=== PATIENT | male | born 1945 | race African-American/Black ===

== ENCOUNTER 2019-04-06 15:39 | Emergency (ER) | payer OTHER ==
[~2019-04-06] VITALS: Ht 182.9 cm; Wt 85.0 kg
[2019-04-06] MEDS ORDERED: ACETAMINOPHEN 325MG TABLET PO ONE (17:15)
[2019-04-06] MEDS ORDERED: ONDANSETRON HCL 4MG/2ML INJ IV ONE (17:15)
[2019-04-06] MEDS ORDERED: MORPHINE SULFATE 4 MG/ML CPJ (NOT FOR IM USE) IV ONE (17:15)
[2019-04-06] MEDS ORDERED: DEXAMETHASONE 10 MG/ML VIAL IV ONE (17:15)
[2019-04-06 19:21] VITALS: BP 130/83
== END 2019-04-06 22:52 | disposition short-term general hospital (02) ==
LOC: ER 15:39
DX: M54.5 Low back pain (principal); G89.29 Other chronic pain; M54.32 Sciatica, left side; M54.31 Sciatica, right side; R26.89 Other abnormalities of gait and mobility; M19.90 Unspecified osteoarthritis, unspecified site; E11.9 Type 2 diabetes mellitus without complications; Z91.81 History of falling
CPT/HCPCS: 96374; 96375; 99285; J1100; J2270; J2405

== ENCOUNTER 2021-05-21 17:57 | Inpatient (IN) | payer MEDICARE, OTHER ==
[~2021-05-21] VITALS: Ht 182.9 cm; Wt 77.6 kg
[2021-05-21 19:37] LABS: BASOPHILS % 0.1 % (0.0-2.0); CHLORIDE 88 mEq/L (98-107); EOSINOPHILS % 0.4 % (0.0-5.0); HEMATOCRIT. 36.1 % (42.0-52.0); HEMOGLOBIN. 11.7 g/dL (14.0-18.0); LYMPHOCYTES % 10.3 % (20.0-50.0); MEAN CORPUSCULAR HEMOGLOBIN 27.8 pg (28.0-32.0); MEAN CORPUSCULAR VOLUME 85.9 fL (80.0-94.0); MEAN PLATELET VOLUME 9.5 fl (7.4-10.4); MONOCYTES % 13.2 % (2.0-8.0); PLATELET 202 x1000/uL (130-400)
[2021-05-21] MEDS ORDERED: INSULIN REGULAR (HUMULIN R) 300UNITS/3ML VIAL SUBCUT ONE (20:00)
[2021-05-21] MEDS ORDERED: CEFTRIAXONE 2 G PREMIX 50 ML IV ONE (20:00)
[2021-05-21] MEDS ORDERED: AZITHROMYCIN 500MG/250ML 250 ML IV ONE (20:00)
[2021-05-21] MEDS ORDERED: SODIUM CHLORIDE 0.9% 1000ML BAG (SEPSIS BOLUS) IV ONE (20:00)
[2021-05-21] MEDS ORDERED: IPRATROPIUM/ALBUTEROL 0.5-3(2.5)MG/3ML NEB NEB PRN (22:30)
[2021-05-21] MEDS ORDERED: NA PHOS,M-B/NA PHOS,DI-BA ENEMA 118ML PR PRN (22:30)
[2021-05-21] MEDS ORDERED: GUAIFENESIN 200MG/10ML SUGAR FREE UDC PO PRN (22:30)
[2021-05-21] MEDS ORDERED: MORPHINE SULFATE 2 MG/ML CPJ (NOT FOR IM USE) IV PRN (22:30)
[2021-05-21] MEDS ORDERED: PIPERACILLIN/TAZOBACTAM 3.375 G in DEXTROSE 5% WATER 50 ML IV SCH (22:30)
[2021-05-21] MEDS ORDERED: LORAZEPAM 2MG/ML CPJ IV PRN (22:30)
[2021-05-21] MEDS ORDERED: CLONIDINE 0.1MG TABLET PO PRN (22:30)
[2021-05-21] MEDS ORDERED: DOCUSATE SODIUM 100MG CAPSULE PO PRN (22:30)
[2021-05-21] MEDS ORDERED: DIPHENHYDRAMINE 50MG/ML VIAL IV PRN (22:30)
[2021-05-21] MEDS ORDERED: MAGNESIUM/ALUMINUM HYDROXIDE/SIMETHICONE 30ML UDC PO PRN (22:30)
[2021-05-21] MEDS ORDERED: ONDANSETRON HCL 4MG/2ML INJ IV PRN (22:30)
[2021-05-21] MEDS: SODIUM CHLORIDE 0.9% 1,000 ML IV SCH (22:30)
[2021-05-21] MEDS ORDERED: NALOXONE HCL 0.4MG/ML VIAL IV PRN (22:45)
[2021-05-22] VITALS (7 sets, daily range): BP systolic 104–131; BP diastolic 57–74
[2021-05-22] MEDS ORDERED: *PATIENT'S OWN MEDICATION STORAGE XX SCH (02:45)
[2021-05-22] MEDS ORDERED: HYDR453.3 TP (03:16)
[2021-05-22] MEDS ORDERED: HYDR-4135 PO (03:16)
[2021-05-22] MEDS ORDERED: GLIP10TA10 PO (03:16)
[2021-05-22] MEDS ORDERED: APIX5TAB PO (03:16)
[2021-05-22] MEDS ORDERED: CARV25TA47 PO (03:16)
[2021-05-22] MEDS ORDERED: CLOT15CR27 TP (03:16)
[2021-05-22] MEDS ORDERED: SPIR25TA6 PO (03:16)
[2021-05-22] MEDS ORDERED: ISOS30TA91 PO (03:16)
[2021-05-22] MEDS ORDERED: METF-414 PO (03:16)
[2021-05-22] MEDS ORDERED: LORA10TA7 PO (03:16)
[2021-05-22] MEDS ORDERED: ATOR40TA70 PO (03:16)
[2021-05-22] MEDS ORDERED: DEXTROSE 50% WATER 50ML SYRINGE IV PRN (04:15)
[2021-05-22] MEDS ORDERED: PIPERACILLIN/TAZ 3.375G PREMIX 50 ML IV SCH (06:00)
[2021-05-22] MEDS: PIPERACILLIN/TAZOBACTAM 3.375G in DEXT 5% WATER 50ML IV SCH ×3 (06:08→21:56)
[2021-05-22] MEDS: BLOOD SUGAR DIAGNOSTIC STRIP TEST SCH ×4 (06:17→21:24)
[2021-05-22] MEDS: INSULIN LISPRO 100 UNITS/ML SUBCUT SCH ×4 (06:21→21:00)
[2021-05-22 07:17] LABS: HEMATOCRIT. 34.2 % (42.0-52.0); HEMOGLOBIN. 11.1 g/dL (14.0-18.0); MEAN CORPUSCULAR HEMOGLOBIN 27.1 pg (28.0-32.0); MEAN CORPUSCULAR VOLUME 83.3 fL (80.0-94.0); MEAN PLATELET VOLUME 9.1 fl (7.4-10.4); PLATELET 205 x1000/uL (130-400); RED CELL DISTRIBUTION WIDTH 14.3 % (11.6-14.6)
[2021-05-22 07:21] LABS: CHLORIDE 101 mEq/L (98-107)
[2021-05-22] MEDS: ASPIRIN 81MG EC TABLET PO SCH (08:12)
[2021-05-22 11:01] LABS: PLATELET ESTIMATE NORMAL
[2021-05-22 12:59] LABS: CLARITY URINE CLEAR (CLEAR); COLOR URINE YELLOW (YELLOW); KETONES URINE NEGATIVE (NEGATIVE); LEUKOCYTE ESTERASE URINE NEGATIVE (NEGATIVE); NITRITE URINE NEGATIVE (NEGATIVE); OCCULT BLOOD URINE 1+ (NEGATIVE); PROTEIN URINE 1+ (NEGATIVE); SPECIFIC GRAVITY URINE 1.015 (1.005-1.030)
[2021-05-22] MEDS: HYDROCODONE/ACETAMINOPHEN 5/325MG TABLET PO PRN (22:00)
[2021-05-22] MEDS: SODIUM CHLORIDE 0.9% 1,000 ML IV SCH (22:30)
[2021-05-22 22:35] LABS: PHOSPHORUS 2.2 mg/dL (2.5-4.9)
[2021-05-22 22:36] LABS: LDL CHOLESTEROL 72 mg/dL (5-100)
[2021-05-22 22:42] LABS: HDL CHOLESTEROL 31 mg/dL (40-59)
[2021-05-23] VITALS: BP 127/65
[2021-05-23 04:00] VITALS: BP 138/74
[2021-05-23] MEDS: BLOOD SUGAR DIAGNOSTIC STRIP TEST SCH ×4 (06:01→21:53)
[2021-05-23] MEDS: PIPERACILLIN/TAZOBACTAM 3.375G in DEXT 5% WATER 50ML IV SCH ×3 (06:12→21:53)
[2021-05-23] MEDS: INSULIN LISPRO 100 UNITS/ML SUBCUT SCH ×4 (06:13→21:46)
[2021-05-23 06:44] LABS: BASOPHILS % 0.5 % (0.0-2.0); EOSINOPHILS % 3.6 % (0.0-5.0); HEMOGLOBIN. 11.5 g/dL (14.0-18.0); MEAN CORPUSCULAR HEMOGLOBIN 27.4 pg (28.0-32.0); MEAN CORPUSCULAR VOLUME 83.6 fL (80.0-94.0); MEAN PLATELET VOLUME 8.9 fl (7.4-10.4); MONOCYTES % 14.3 % (2.0-8.0); NEUTROPHILS % 65.6 % (40.0-76.0); PLATELET 212 x1000/uL (130-400); RED BLOOD CELL COUNT 4.19 mill/uL (4.7-6.1); RED CELL DISTRIBUTION WIDTH 14.4 % (11.6-14.6)
[2021-05-23 08:00] VITALS: BP 125/75
[2021-05-23] MEDS: ASPIRIN 81MG EC TABLET PO SCH (08:03)
[2021-05-23 12:00] VITALS: BP 118/61
[2021-05-23] MEDS: CARVEDILOL 6.25 MG TABLET PO SCH ×2 (12:17→21:53)
[2021-05-23 16:00] VITALS: BP 140/65
[2021-05-23] MEDS: HYDROCODONE/ACETAMINOPHEN 5/325MG TABLET PO PRN (16:01)
[2021-05-23 20:00] VITALS: BP 152/83
[2021-05-23] MEDS: SODIUM CHLORIDE 0.9% 1,000 ML IV SCH (21:54)
[2021-05-24] VITALS: BP 155/78
[2021-05-24 04:00] VITALS: BP 133/75
[2021-05-24 04:09] LABS: *CREATININE RANDOM URINE 57.3 mg/dL (Not Estab.); MICROALBUMIN RANDOM URINE 47.2 ug/mL (Not Estab.)
[2021-05-24] MEDS: BLOOD SUGAR DIAGNOSTIC STRIP TEST SCH ×3 (06:14→21:00)
[2021-05-24] MEDS: INSULIN LISPRO 100 UNITS/ML SUBCUT SCH ×3 (06:15→23:54)
[2021-05-24] MEDS: PIPERACILLIN/TAZOBACTAM 3.375G in DEXT 5% WATER 50ML IV SCH ×3 (06:26→23:00)
[2021-05-24 08:00] VITALS: BP 144/69
[2021-05-24] MEDS: ASPIRIN 81MG EC TABLET PO SCH (09:55)
[2021-05-24] MEDS: CARVEDILOL 6.25 MG TABLET PO SCH ×2 (09:56→21:00)
[2021-05-24 12:00] VITALS: BP 123/72
[2021-05-24 16:00] VITALS: BP 140/92
[2021-05-24 20:00] VITALS: BP 110/81
[2021-05-24] MEDS: SODIUM CHLORIDE 0.9% 1,000 ML IV SCH (23:01)
[2021-05-25] VITALS: BP 126/74
[2021-05-25] MEDS: HYDROCODONE/ACETAMINOPHEN 5/325MG TABLET PO PRN (00:24)
[2021-05-25 04:00] VITALS: BP 144/80
[2021-05-25] MEDS: BLOOD SUGAR DIAGNOSTIC STRIP TEST SCH ×4 (06:24→20:30)
[2021-05-25] MEDS: PIPERACILLIN/TAZOBACTAM 3.375G in DEXT 5% WATER 50ML IV SCH ×3 (06:24→20:30)
[2021-05-25] MEDS: INSULIN LISPRO 100 UNITS/ML SUBCUT SCH ×4 (06:37→20:31)
[2021-05-25 08:00] VITALS: BP 138/71
[2021-05-25] MEDS: CARVEDILOL 6.25 MG TABLET PO SCH ×2 (08:41→20:30)
[2021-05-25] MEDS: ASPIRIN 81MG EC TABLET PO SCH (08:41)
[2021-05-25 12:00] VITALS: BP 154/82
[2021-05-25 12:11] LABS: BASOPHILS % 0.9 % (0.0-2.0); EOSINOPHILS % 3.8 % (0.0-5.0); HEMATOCRIT. 37.1 % (42.0-52.0); HEMOGLOBIN. 11.9 g/dL (14.0-18.0); LYMPHOCYTES % 18.4 % (20.0-50.0); MEAN CORPUSCULAR HEMOGLOBIN 26.9 pg (28.0-32.0); MEAN CORPUSCULAR VOLUME 84.1 fL (80.0-94.0); MEAN PLATELET VOLUME 8.4 fl (7.4-10.4); MONOCYTES % 8.8 % (2.0-8.0); NEUTROPHILS % 68.1 % (40.0-76.0); PLATELET 287 x1000/uL (130-400); RED BLOOD CELL COUNT 4.41 mill/uL (4.7-6.1); RED CELL DISTRIBUTION WIDTH 14.5 % (11.6-14.6)
[2021-05-25 12:17] LABS: CHLORIDE 102 mEq/L (98-107)
[2021-05-25 16:00] VITALS: BP 147/90
[2021-05-25 20:00] VITALS: BP 152/85
[2021-05-25] MEDS: SODIUM CHLORIDE 0.9% 1,000 ML IV SCH (20:31)
[2021-05-26] VITALS: BP 154/88
[2021-05-26] MEDS: HYDROCODONE/ACETAMINOPHEN 5/325MG TABLET PO PRN ×2 (01:57→16:38)
[2021-05-26 04:00] VITALS: BP 148/89
[2021-05-26] MEDS: INSULIN LISPRO 100 UNITS/ML SUBCUT SCH ×4 (06:11→21:17)
[2021-05-26] MEDS: PIPERACILLIN/TAZOBACTAM 3.375G in DEXT 5% WATER 50ML IV SCH ×3 (06:11→22:42)
[2021-05-26] MEDS: BLOOD SUGAR DIAGNOSTIC STRIP TEST SCH ×4 (06:11→21:16)
[2021-05-26 08:00] VITALS: BP 148/96
[2021-05-26] MEDS: CARVEDILOL 6.25 MG TABLET PO SCH ×2 (09:08→21:16)
[2021-05-26] MEDS: ASPIRIN 81MG EC TABLET PO SCH (09:08)
[2021-05-26 12:00] VITALS: BP 140/88
[2021-05-26 16:00] VITALS: BP 147/72
[2021-05-26 20:00] VITALS: BP 156/86
[2021-05-26] MEDS: SODIUM CHLORIDE 0.9% 1,000 ML IV SCH (22:42)
[2021-05-26] MEDS: ACETAMINOPHEN 325MG TABLET PO PRN (22:59)
[2021-05-27] VITALS: BP 151/80
[2021-05-27 04:00] VITALS: BP 122/61
[2021-05-27] MEDS: BLOOD SUGAR DIAGNOSTIC STRIP TEST SCH ×4 (05:44→21:41)
[2021-05-27] MEDS: PIPERACILLIN/TAZOBACTAM 3.375G in DEXT 5% WATER 50ML IV SCH ×3 (05:44→21:43)
[2021-05-27] MEDS: INSULIN LISPRO 100 UNITS/ML SUBCUT SCH ×4 (05:45→21:43)
[2021-05-27 08:00] VITALS: BP 138/88
[2021-05-27] MEDS: ASPIRIN 81MG EC TABLET PO SCH (09:18)
[2021-05-27] MEDS: CARVEDILOL 6.25 MG TABLET PO SCH ×2 (09:19→21:41)
[2021-05-27 12:00] VITALS: BP 138/84
[2021-05-27 16:00] VITALS: BP 132/53
[2021-05-27 20:00] VITALS: BP 153/90
[2021-05-27] MEDS: SODIUM CHLORIDE 0.9% 1,000 ML IV SCH (21:41)
[2021-05-28] VITALS: BP 131/72
[2021-05-28 04:00] VITALS: BP 150/92
[2021-05-28] MEDS: INSULIN LISPRO 100 UNITS/ML SUBCUT SCH ×4 (06:00→21:18)
[2021-05-28] MEDS: BLOOD SUGAR DIAGNOSTIC STRIP TEST SCH ×4 (06:00→21:18)
[2021-05-28 08:00] VITALS: BP 142/91
[2021-05-28] MEDS: CARVEDILOL 6.25 MG TABLET PO SCH ×2 (10:13→21:15)
[2021-05-28] MEDS: ASPIRIN 81MG EC TABLET PO SCH (10:13)
[2021-05-28 12:00] VITALS: BP 129/70
[2021-05-28 16:00] VITALS: BP 155/90
[2021-05-28 20:00] VITALS: BP 153/70
[2021-05-29] VITALS: BP 129/71
[2021-05-29 04:00] VITALS: BP 151/75
[2021-05-29 06:29] LABS: CHLORIDE 104 mEq/L (98-107)
[2021-05-29 06:38] LABS: PHOSPHORUS 2.9 mg/dL (2.5-4.9)
[2021-05-29] MEDS: INSULIN LISPRO 100 UNITS/ML SUBCUT SCH ×4 (06:58→21:16)
[2021-05-29] MEDS: BLOOD SUGAR DIAGNOSTIC STRIP TEST SCH ×4 (06:58→21:16)
[2021-05-29] MEDS: SODIUM CHLORIDE 0.9% 1,000 ML IV SCH ×2 (06:58→21:15)
[2021-05-29 07:48] LABS: BASOPHILS % 1.2 % (0.0-2.0); EOSINOPHILS % 1.7 % (0.0-5.0); HEMATOCRIT. 33.3 % (42.0-52.0); HEMOGLOBIN. 11.1 g/dL (14.0-18.0); LYMPHOCYTES % 27.7 % (20.0-50.0); MEAN CORPUSCULAR HEMOGLOBIN 28.1 pg (28.0-32.0); MEAN CORPUSCULAR VOLUME 84.5 fL (80.0-94.0); MEAN PLATELET VOLUME 8.3 fl (7.4-10.4); MONOCYTES % 11.3 % (2.0-8.0); NEUTROPHILS % 58.1 % (40.0-76.0); PLATELET 306 x1000/uL (130-400); RED BLOOD CELL COUNT 3.94 mill/uL (4.7-6.1); RED CELL DISTRIBUTION WIDTH 14.1 % (11.6-14.6)
[2021-05-29 08:00] VITALS: BP 162/95
[2021-05-29] MEDS: ACETAMINOPHEN 325MG TABLET PO PRN (08:18)
[2021-05-29] MEDS: ASPIRIN 81MG EC TABLET PO SCH (08:19)
[2021-05-29] MEDS: CARVEDILOL 6.25 MG TABLET PO SCH ×2 (08:19→21:16)
[2021-05-29 12:00] VITALS: BP 137/65
[2021-05-29 16:00] VITALS: BP 135/90
[2021-05-29 20:00] VITALS: BP 150/81
[2021-05-29] MEDS: HYDRALAZINE HCL 25MG TABLET PO SCH (21:15)
[2021-05-30] VITALS (7 sets, daily range): BP systolic 123–163; BP diastolic 66–92
[2021-05-30] MEDS: BLOOD SUGAR DIAGNOSTIC STRIP TEST SCH ×4 (05:49→20:32)
[2021-05-30] MEDS: INSULIN LISPRO 100 UNITS/ML SUBCUT SCH ×4 (06:17→20:32)
[2021-05-30] MEDS: ASPIRIN 81MG EC TABLET PO SCH (08:35)
[2021-05-30] MEDS: HYDRALAZINE HCL 25MG TABLET PO SCH ×2 (08:35→20:31)
[2021-05-30] MEDS: CARVEDILOL 6.25 MG TABLET PO SCH ×2 (08:36→20:31)
[2021-05-30] MEDS: SODIUM CHLORIDE 0.9% 1,000 ML IV SCH (22:30)
== END 2021-05-31 00:17 | DRG 871 ==
LOC: ER 17:57 → EDBD 21:11 → 7EST 21:11 → ENRESERV 23:00
PROVIDERS: ADMIT Internal Medicine; ATTEND Internal Medicine
DX: A41.9 Sepsis, unspecified organism (principal); N17.0 Acute kidney failure with tubular necrosis; J96.01 Acute respiratory failure with hypoxia; J69.0 Pneumonitis due to inhalation of food and vomit; E46 Unspecified protein-calorie malnutrition; E87.1 Hypo-osmolality and hyponatremia; I50.32 Chronic diastolic (congestive) heart failure; I13.0 Hypertensive heart and chronic kidney disease with heart failure and stage 1 through stage 4 chronic kidney disease, or unspecified chronic kidney disease; I31.3 Pericardial effusion (noninflammatory); D64.9 Anemia, unspecified; E11.22 Type 2 diabetes mellitus with diabetic chronic kidney disease; E11.65 Type 2 diabetes mellitus with hyperglycemia; E86.0 Dehydration; E78.5 Hyperlipidemia, unspecified; M19.90 Unspecified osteoarthritis, unspecified site; Z20.822 Contact with and (suspected) exposure to COVID-19; R26.9 Unspecified abnormalities of gait and mobility; G90.8 Other disorders of autonomic nervous system; I25.10 Atherosclerotic heart disease of native coronary artery without angina pectoris; I44.7 Left bundle-branch block, unspecified; N18.9 Chronic kidney disease, unspecified; Z89.511 Acquired absence of right leg below knee; Z89.512 Acquired absence of left leg below knee; Z68.23 Body mass index [BMI] 23.0-23.9, adult
CPT/HCPCS: 36415; 71045; 76770; 80048; 80053; 80061; 81003; 82043; 82533; 82570; 82962; 83036; 83605; 83735; 83880; 83930; 84100; 84145; 84156; 84443; 84484; 85025; 87426; 93005; 93306; 93970; 97110; 97116; 97162; 97166; 97530; 97535; 99291; J0456; J0696; J1815; J2543; J7030; J7060

== ENCOUNTER 2022-03-20 12:33 | Inpatient (IN) | payer BC, MEDICARE ==
[~2022-03-20] VITALS: Ht 195.6 cm; Wt 78.9 kg
[~2022-03-20 12:33] MED LIST: APIX5TAB PO; ATOR40TA70 PO; CARV25TA47 PO; CLOT15CR27 TP; GLIP10TA10 PO; HYDR-4135 PO; HYDR453.3 TP; ISOS30TA91 PO; LORA10TA7 PO; METF-414 PO; SPIR25TA6 PO
[2022-03-20] MEDS ORDERED: SODIUM CHLORIDE 0.9% 1,000 ML IV ONE (13:15)
[2022-03-20 13:26] LABS: BASOPHILS % 1.1 % (0.0-2.0); EOSINOPHILS % 4.6 % (0.0-5.0); HEMATOCRIT. 35.4 % (42.0-52.0); HEMOGLOBIN. 11.5 g/dL (14.0-18.0); MEAN CORPUSCULAR HEMOGLOBIN 28.6 pg (28.0-32.0); MEAN PLATELET VOLUME 8.2 fl (7.4-10.4); MONOCYTES % 8.5 % (2.0-8.0); NEUTROPHILS % 58.8 % (40.0-76.0); PLATELET 162 x1000/uL (130-400); RED BLOOD CELL COUNT 4.02 mill/uL (4.7-6.1); RED CELL DISTRIBUTION WIDTH 15.4 % (11.6-14.6)
[2022-03-20 13:35] LABS: CHLORIDE 107 mEq/L (98-107)
[2022-03-20] MEDS ORDERED: SODIUM BICARBONATE 8.4% 1 MEQ/ML 50ML SYR IV ONE (14:15)
[2022-03-20] MEDS ORDERED: SODIUM POLYSTYRENE SULFONATE 15 G/60 ML BOT PO ONE (14:15)
[2022-03-20] MEDS ORDERED: ALBUTEROL (0.083%) 2.5MG/3ML NEB HHN ONE (14:15)
[2022-03-20] MEDS ORDERED: CALCIUM GLUCONATE 100MG/ML 10ML VIAL IV ONE (14:15)
[2022-03-20] MEDS ORDERED: DEXTROSE 50% WATER 50ML SYRINGE IV ONE (14:15)
[2022-03-20] MEDS ORDERED: INSULIN REGULAR (HUMULIN R) 300UNITS/3ML VIAL IV ONE (14:15)
[2022-03-20] MEDS ORDERED: CALCIUM GLUCONATE 100MG/ML 10ML VIAL IV NR (14:45)
[2022-03-20 15:12] LABS: PARTIAL THROMBOPLASTIN TIME 24.9 sec (23.4-31.0); PROTHROMBIN TIME 11.2 sec (9.6-11.0)
[2022-03-20] MEDS ORDERED: CEFTRIAXONE 1 G PREMIX 50 ML IV ONE (15:30)
[2022-03-20 15:59] LABS: CLARITY URINE CLEAR (CLEAR); COLOR URINE YELLOW (YELLOW); KETONES URINE NEGATIVE (NEGATIVE); LEUKOCYTE ESTERASE URINE NEGATIVE (NEGATIVE); NITRITE URINE NEGATIVE (NEGATIVE); OCCULT BLOOD URINE NEGATIVE (NEGATIVE); PROTEIN URINE NEGATIVE (NEGATIVE); SPECIFIC GRAVITY URINE 1.016 (1.005-1.030); UROBILINOGEN URINE 0.2 E.U./dL (0.2-1.0)
[2022-03-20] MEDS ORDERED: ONDANSETRON HCL 4MG/2ML INJ IV PRN (22:00)
[2022-03-20] MEDS ORDERED: DEXTROSE 50% WATER 50ML SYRINGE IV PRN (22:00)
[2022-03-20] MEDS ORDERED: ACETAMINOPHEN 325MG TABLET PO PRN (22:00)
[2022-03-20] MEDS ORDERED: ENOXAPARIN 40MG/0.4ML SYR SUBCUT SCH (22:00)
[2022-03-20] MEDS: SODIUM CHLORIDE 0.9% 1,000 ML IV SCH (22:15)
[2022-03-20] MEDS: ATORVASTATIN CALCIUM 40MG TABLET PO SCH (23:30)
[2022-03-21 02:00] VITALS: BP 158/98
[2022-03-21 04:00] VITALS: BP 148/79
[2022-03-21] MEDS: BLOOD SUGAR DIAGNOSTIC STRIP TEST SCH ×2 (05:48→11:41)
[2022-03-21] MEDS: SODIUM CHLORIDE 0.9% 1,000 ML IV SCH (05:48)
[2022-03-21 08:00] VITALS: BP 123/76
[2022-03-21] MEDS: INSULIN LISPRO 100 UNITS/ML SUBCUT SCH ×2 (08:10→12:38)
[2022-03-21] MEDS: HYDRALAZINE HCL 50MG TABLET PO SCH ×2 (08:53→12:33)
[2022-03-21] MEDS: ATORVASTATIN CALCIUM 40MG TABLET PO SCH (08:55)
[2022-03-21] MEDS ORDERED: APIXABAN 5 MG TABLET PO SCH (09:00)
[2022-03-21] MEDS ORDERED: CARVEDILOL 12.5MG TABLET PO SCH (09:00)
[2022-03-21] MEDS ORDERED: ISOSORBIDE MONONITRATE 30MG TABLET SR 24HR PO SCH (09:00)
[2022-03-21] MEDS ORDERED: SODIUM CHLORIDE 0.9% 1,000 ML IV SCH (09:32)
[2022-03-21] MEDS ORDERED: SODIUM BICARBONATE 650 MG TABLET PO SCH (09:45)
[2022-03-21 11:48] VITALS: BP 115/73
[2022-03-21 12:23] LABS: BASOPHILS % 0.7 % (0.0-2.0); EOSINOPHILS % 1.8 % (0.0-5.0); HEMATOCRIT. 34.7 % (42.0-52.0); HEMOGLOBIN. 11.5 g/dL (14.0-18.0); MEAN CORPUSCULAR HEMOGLOBIN 29.2 pg (28.0-32.0); MEAN CORPUSCULAR VOLUME 87.9 fL (80.0-94.0); MEAN PLATELET VOLUME 8.3 fl (7.4-10.4); MONOCYTES % 8.9 % (2.0-8.0); NEUTROPHILS % 69.6 % (40.0-76.0); PLATELET 147 x1000/uL (130-400); RED BLOOD CELL COUNT 3.95 mill/uL (4.7-6.1)
[2022-03-21] MEDS ORDERED: SITA50TA3 MT ×2 (13:04→17:27)
[2022-03-21 13:18] VITALS: BP 115/73
== END 2022-03-21 16:10 | disposition home or self-care (01) | DRG 640 ==
LOC: ER 13:23 → MICUSO 15:47 → EDBEDREQTM 15:57 → EDBEDREQ 15:57 → ENRESERV 21:56 → 7WST 03-21 02:12
PROVIDERS: ADMIT Internal Medicine; ATTEND Internal Medicine
DX: E87.5 Hyperkalemia (principal); N17.0 Acute kidney failure with tubular necrosis; I50.32 Chronic diastolic (congestive) heart failure; I13.0 Hypertensive heart and chronic kidney disease with heart failure and stage 1 through stage 4 chronic kidney disease, or unspecified chronic kidney disease; E87.2 Acidosis; M19.90 Unspecified osteoarthritis, unspecified site; I48.91 Unspecified atrial fibrillation; N18.30 Chronic kidney disease, stage 3 unspecified; E11.22 Type 2 diabetes mellitus with diabetic chronic kidney disease; E78.5 Hyperlipidemia, unspecified; Z86.73 Personal history of transient ischemic attack (TIA), and cerebral infarction without residual deficits; Z89.512 Acquired absence of left leg below knee; E86.0 Dehydration
CPT/HCPCS: 36415; 71045; 80048; 80053; 81003; 82550; 82962; 83880; 84443; 84484; 85025; 93005; 94640; 99285; J0610; J0696; J1815; J3490; J7030

== ENCOUNTER 2022-09-30 09:49 | Inpatient (IN) | payer MEDICARE ==
[~2022-09-30] VITALS: Ht 172.7 cm; Wt 76.3 kg
[~2022-09-30 09:49] MED LIST changes: -METF-414 PO; +SITA50TA3 MT; -SPIR25TA6 PO
[2022-09-30 10:37] LABS: BASOPHILS % 0.6 % (0.0-2.0); EOSINOPHILS % 2.2 % (0.0-5.0); HEMATOCRIT. 38.4 % (42.0-52.0); HEMOGLOBIN. 12.7 g/dL (14.0-18.0); LYMPHOCYTES % 25.8 % (20.0-50.0); MEAN CORPUSCULAR HEMOGLOBIN 28.9 pg (28.0-32.0); MEAN CORPUSCULAR VOLUME 87.3 fL (80.0-94.0); MEAN PLATELET VOLUME 8.2 fl (7.4-10.4); MONOCYTES % 10.8 % (2.0-8.0); NEUTROPHILS % 60.6 % (40.0-76.0); PLATELET 226 x1000/uL (130-400); RED CELL DISTRIBUTION WIDTH 14.7 % (11.6-14.6)
[2022-09-30 10:40] LABS: CHLORIDE 110 mEq/L (98-107)
[2022-09-30 10:47] LABS: PROTHROMBIN TIME 10.9 sec (9.6-11.0)
[2022-09-30 10:50] LABS: ETHANOL BLOOD < 10 mg/dL
[2022-09-30] MEDS ORDERED: IOHEXOL-350 100 ML BOTTLE ONE (12:01)
[2022-09-30] MEDS ORDERED: CLONIDINE 0.1MG TABLET PO PRN (13:00)
[2022-09-30] MEDS ORDERED: ONDANSETRON HCL 4MG/2ML INJ IV PRN (13:00)
[2022-09-30] MEDS ORDERED: DIPHENHYDRAMINE 50MG/ML VIAL IV PRN (13:00)
[2022-09-30] MEDS ORDERED: SODIUM CHLORIDE 0.9% 1,000 ML IV SCH (13:00)
[2022-09-30] MEDS ORDERED: IPRATROPIUM/ALBUTEROL 0.5-3(2.5)MG/3ML NEB HHN PRN (13:00)
[2022-09-30] MEDS ORDERED: ACETAMINOPHEN 325MG TABLET PO PRN (13:00)
[2022-09-30] MEDS ORDERED: SODIUM POLYSTYRENE SULFONATE 15 G/60 ML BOT PO SCH (13:15)
[2022-09-30] MEDS ORDERED: DEXTROSE 50% WATER 50ML SYRINGE IV SCH (13:15)
[2022-09-30] MEDS ORDERED: SODIUM BICARBONATE 8.4% 1 MEQ/ML 50ML SYR IV SCH (13:15)
[2022-09-30] MEDS ORDERED: INSULIN REGULAR (HUMULIN R) 300UNITS/3ML VIAL IV SCH (13:30)
[2022-09-30] MEDS ORDERED: CALCIUM CHLORIDE 2,000 MG in DEXT 5% WATER 80 ML IV SCH (14:00)
[2022-09-30 16:00] VITALS: BP 144/72
[2022-09-30] MEDS ORDERED: ISOSORBIDE MONONITRATE 20MG TABLET PO SCH (16:00)
[2022-09-30 16:10] VITALS: BP 144/72
[2022-09-30] MEDS ORDERED: SPIR25TA6 MT (16:42)
[2022-09-30] MEDS ORDERED: METF-873 PO (16:42)
[2022-09-30] MEDS: APIXABAN 5 MG TABLET PO SCH (18:37)
[2022-09-30 20:00] VITALS: BP 134/91
[2022-09-30] MEDS ORDERED: DEXTROSE 50% WATER 50ML SYRINGE IV PRN ×2 (20:30)
[2022-09-30] MEDS ORDERED: BLOOD SUGAR DIAGNOSTIC STRIP TEST SCH (21:00)
[2022-09-30] MEDS ORDERED: ATORVASTATIN CALCIUM 40MG TABLET PO SCH (21:00)
[2022-09-30] MEDS ORDERED: INSULIN LISPRO 100 UNITS/ML SUBCUT SCH (21:00)
[2022-09-30] MEDS: INSULIN LISPRO 100 UNITS/ML SUBCUT SCH (21:00)
[2022-09-30] MEDS: HYDRALAZINE HCL 50MG TABLET PO SCH (21:27)
[2022-09-30] MEDS: BLOOD SUGAR DIAGNOSTIC STRIP TEST SCH (21:27)
[2022-10-01] VITALS: BP 128/74
[2022-10-01 04:00] VITALS: BP 123/64
[2022-10-01] MEDS: HYDRALAZINE HCL 50MG TABLET PO SCH ×2 (05:08→05:11)
[2022-10-01] MEDS: BLOOD SUGAR DIAGNOSTIC STRIP TEST SCH ×2 (06:51→11:37)
[2022-10-01 06:53] LABS: BASOPHILS % 0.8 % (0.0-2.0); EOSINOPHILS % 2.5 % (0.0-5.0); HEMATOCRIT. 37.8 % (42.0-52.0); HEMOGLOBIN. 12.2 g/dL (14.0-18.0); LYMPHOCYTES % 27.2 % (20.0-50.0); MEAN CORPUSCULAR HEMOGLOBIN 28.1 pg (28.0-32.0); MEAN CORPUSCULAR VOLUME 87.1 fL (80.0-94.0); MEAN PLATELET VOLUME 8.6 fl (7.4-10.4); MONOCYTES % 12.3 % (2.0-8.0); NEUTROPHILS % 57.2 % (40.0-76.0); PLATELET 205 x1000/uL (130-400); RED BLOOD CELL COUNT 4.34 mill/uL (4.7-6.1)
[2022-10-01 07:03] LABS: CHLORIDE 112 mEq/L (98-107)
[2022-10-01 08:00] VITALS: BP 118/66
[2022-10-01] MEDS: INSULIN LISPRO 100 UNITS/ML SUBCUT SCH ×2 (08:10→13:01)
[2022-10-01] MEDS: APIXABAN 5 MG TABLET PO SCH (10:02)
[2022-10-01 12:00] VITALS: BP 127/61
== END 2022-10-01 13:45 | disposition left against medical advice (07) | DRG 67 ==
LOC: ER 09:49 → 7WST 12:57
PROVIDERS: ADMIT Internal Medicine; ATTEND Internal Medicine
DX: I65.22 Occlusion and stenosis of left carotid artery (principal); G93.41 Metabolic encephalopathy; N17.9 Acute kidney failure, unspecified; E11.22 Type 2 diabetes mellitus with diabetic chronic kidney disease; E78.5 Hyperlipidemia, unspecified; I12.9 Hypertensive chronic kidney disease with stage 1 through stage 4 chronic kidney disease, or unspecified chronic kidney disease; E87.5 Hyperkalemia; M19.90 Unspecified osteoarthritis, unspecified site; N18.30 Chronic kidney disease, stage 3 unspecified; Z53.29 Procedure and treatment not carried out because of patient's decision for other reasons; Z86.73 Personal history of transient ischemic attack (TIA), and cerebral infarction without residual deficits; Z89.512 Acquired absence of left leg below knee; Z79.899 Other long term (current) drug therapy
CPT/HCPCS: 36415; 70496; 70498; 71045; 76770; 80048; 80053; 80320; 82962; 83036; 84484; 85025; 86803; 93005; 93970; 99291; J1200; J1815; J3490; J7060; Q9967; G0480

== ENCOUNTER 2024-05-12 11:41 | Emergency (ER) | payer MEDICARE, OTHER ==
[~2024-05-12] VITALS: Ht 180.3 cm; Wt 80.0 kg
[~2024-05-12 11:41] MED LIST changes: -APIX5TAB PO; +AZIT500T8 PO; +CARV12.545 PO; -CARV25TA47 PO; +GABA-1180 PO; -GLIP10TA10 PO; +GLIP10TA17 PO; -HYDR-4135 PO; -HYDR453.3 TP; +HYDR50TA39 PO; -SITA50TA3 MT; +SPIR25TA6 MT
[2024-05-12 11:43] VITALS: O2SAT 98
[2024-05-12] MEDS ORDERED: CEFEPIME 1GM IN DEXT 5% 50ML IV ONE (12:30)
[2024-05-12] MEDS: CEFEPIME 1GM/50ML 50 ML IV SCH (13:10)
[2024-05-12 13:17] LABS: EOSINOPHILS % 2.3 % (0.0-5.0); HEMATOCRIT. 31.5 % (42.0-52.0); LYMPHOCYTES % 18.6 % (20.0-50.0); MEAN CORPUSCULAR HEMOGLOBIN 27.8 pg (28.0-32.0); MEAN CORPUSCULAR HGB CONC 31.7 g/dL (31.0-37.0); MEAN CORPUSCULAR VOLUME 87.7 fL (80.0-94.0); MONOCYTES % 11.2 % (2.0-8.0); NEUTROPHILS % 66.9 % (40.0-76.0); PLATELET 158 x1000/uL (130-400); RED BLOOD CELL COUNT 3.59 mill/uL (4.7-6.1); RED CELL DISTRIBUTION WIDTH 15.5 % (11.6-14.6)
[2024-05-12 13:25] LABS: CHLORIDE 109 mEq/L (98-107); POTASSIUM 5.9 mEq/L (3.5-5.1); SODIUM 139 mEq/L (136-145)
[2024-05-12 13:26] LABS: CALCIUM 9.6 mg/dL (8.7-10.4); CARBON DIOXIDE 22 mEq/L (21-32)
[2024-05-12 13:31] LABS: CREATININE 2.3 mg/dL (0.6-1.3); GLUCOSE 104 mg/dL (70-105); UREA NITROGEN BLOOD 43 mg/dL (9-23)
[2024-05-12 13:33] LABS: ALANINE AMINOTRANSFERASE 15 IU/L (10-49); ALBUMIN 4.2 g/dL (3.2-4.8); ASPARTATE AMINOTRANSFERASE 16 IU/L (<34); BILIRUBIN DIRECT 0.2 mg/dL (<=3.0)
[2024-05-12 13:34] LABS: BILIRUBIN TOTAL 0.5 mg/dL (0.1-1.0); PROTEIN TOTAL 7.6 g/dL (6.0-8.3)
[2024-05-12] MEDS: VANCOMYCIN 1G PREMIX 200 ML IV NR (14:00)
[2024-05-12 14:40] VITALS: TEMP 37.05852
[2024-05-12 15:12] LABS: ERYTHROCYTE SEDIMENTATION RATE 43 mm/hr (0-20)
[2024-05-12] MEDS ORDERED: ALBUTEROL (0.083%) 2.5MG/3ML NEB HHN NR (15:15)
[2024-05-12] MEDS: FUROSEMIDE 40MG/4ML VIAL IV NR (15:53)
[2024-05-12] MEDS: SODIUM POLYSTYRENE SULFONATE 15 G/60 ML BOT PO NR (15:54)
[2024-05-12] MEDS: CALCIUM CHLORIDE 1GM/10ML SYR IV NR (15:54)
[2024-05-12] MEDS: SODIUM BICARBONATE 8.4% 50MEQ/50ML SYR IV NR (16:26)
[2024-05-12] MEDS: DEXTROSE 50% WATER 50ML SYRINGE IV NR (16:28)
[2024-05-12] MEDS: INSULIN REGULAR (HUMULIN R) 1000UNITS/10ML VIAL IV NR (16:35)
[2024-05-12 18:43] VITALS: BP 131/80; PULSE 96; RESP 14; O2SAT 100
== END 2024-05-12 18:50 | disposition short-term general hospital (02) ==
LOC: ER 11:41 → EDBEDREQ 16:04 → EDBEDREQSVC 16:04 → ER 18:50
DX: I82.503 Chronic embolism and thrombosis of unspecified deep veins of lower extremity, bilateral (principal); E87.6 Hypokalemia; I10 Essential (primary) hypertension; E11.9 Type 2 diabetes mellitus without complications; Z79.899 Other long term (current) drug therapy; Z86.73 Personal history of transient ischemic attack (TIA), and cerebral infarction without residual deficits
CPT/HCPCS: 99291; 96375; 96365; 96366; 93971; 96367; 80076; 80048; 82962; 83690; 85025; 85651; 87040; 36415; 93922; 73630; 93005; J3490 ×2; J0692; J1940; J3370; J1815

== ENCOUNTER 2024-08-15 11:52 | Emergency (ER) | payer OTHER ==
[~2024-08-15] VITALS: Ht 165.1 cm; Wt 70.0 kg
[2024-08-15 11:58] VITALS: O2SAT 98
[2024-08-15 23:59] VITALS: BP 100/53; PULSE 68; RESP 14; TEMP 36.8; O2SAT 100
[2024-08-15] MEDS: LEVOFLOXACIN 500MG PREMIX 100 ML IV ONE (23:59)
[2024-08-16] MEDS: VANCOMYCIN 1000MG/250ML 250 ML IV SCH
== END 2024-08-16 00:20 | disposition short-term general hospital (02) ==
LOC: ER 11:52
DX: R55 Syncope and collapse (principal); E11.9 Type 2 diabetes mellitus without complications; I11.0 Hypertensive heart disease with heart failure; I50.9 Heart failure, unspecified; Z79.84 Long term (current) use of oral hypoglycemic drugs; Z79.899 Other long term (current) drug therapy; Z86.73 Personal history of transient ischemic attack (TIA), and cerebral infarction without residual deficits
CPT/HCPCS: 71045; 73620; 93005; 99285